=== PATIENT | female | born 1985 | race American Indian/Alaskan Native ===

== ENCOUNTER 2016-05-06 16:14 | Emergency (ER) | payer MEDICAID ==
[2016-05-06 16:23] VITALS: BMI 20.2
[2016-05-06 16:27] VITALS: O2SAT 98
--- NOTE | 2016-05-06 16:41 | ED PDOC ---
Arrival/HPI - General Chief Complaint: Lower Extremity Problem/Injury Time Seen by Provider: 05/06/16 16:41 Historian: Patient - History of Present Illness Narrative History of Present Illness (Text): 05/06/16 16:41 This 31 yo female with pmh chronic right knee pain, presents to this ED c/o exacerbation right knee x 1 week. Patient denies trauma, weakness, paresthesias , or rash. Time/Duration: Prior to Arrival Quality: Aching Context: Home Past Medical History - Provider Review Nursing Documentation Reviewed: Yes - Past History Past History: No Previous - Infectious Disease Hx of Infectious Diseases: None - Tetanus Immunization Tetanus Immunization: Unknown - Reproductive Menopause: No - Past Medical History Past Medical History: No Previous - Cardiac Hx Cardiac Disorders: No - Pulmonary Hx Respiratory Disorders: Yes Hx Bronchitis: Yes - Neurological Hx Neurological Disorder: No - HEENT Hx HEENT Disorder: No - Renal Hx Renal Disorder: No - Endocrine/Metabolic Hx Endocrine Disorders: No - Hematological/Oncological Hx Blood Disorders: No - Integumentary Hx Dermatological Disorder: No - Musculoskeletal/Rheumatological Hx Musculoskeletal Disorders: No - Gastrointestinal Hx Gastrointestinal Disorders: Yes Hx Gastritis: Yes - Genitourinary/Gynecological Hx Genitourinary Disorders: No - Psychiatric Hx Psychophysiologic Disorder: No Hx Substance Use: Yes - Past Surgical History Past Surgical History: No Previous - Anesthesia Hx Anesthesia: No Hx Anesthesia Reactions: No Hx Malignant Hyperthermia: No - Suicidal Assessment Feels Threatened In Home Enviroment: No Family/Social History - Physician Review Nursing Documentation Reviewed: Yes Family/Social History: No Known Family HX Smoking Status: Light Smoker < 10 Cigarettes Daily Hx Alcohol Use: Yes Hx Substance Use: Yes Substance used: "weed" Hx Substance Use Treatment: No Allergies/Home Meds Allergies/Adverse Reactions: Allergies shellfish derived Allergy (Verified 02/26/16 14:07) RASH Review of Systems - Review of Systems Constitutional: Normal. absent: Fatigue, Weight Change, Fevers Eyes: Normal ENT: Normal Respiratory: Normal. absent: SOB, Cough Cardiovascular: Normal. absent: Chest Pain Gastrointestinal: Normal. absent: Abdominal Pain, Diarrhea, Nausea, Vomiting Genitourinary Female: Normal. absent: Dysuria, Frequency, Hematuria Musculoskeletal: Normal Skin: Other ((+) right knee joint pain and swelling). absent: Rash, Pruritis, Laceration, Ulcer, Cellulitis Neurological: Normal Endocrine: Normal Hemo/Lymphatic: Normal Psychiatric: Normal Physical Exam Vital Signs Temp Pulse Resp BP Pulse Ox 05/06/16 17:53 98 F 60 18 116/70 98 05/06/16 16:23 98.1 F 69 16 115/73 98 Temperature: Afebrile Blood Pressure: Normal Pulse: Regular Respiratory Rate: Normal Appearance: Positive for: Well-Appearing, Non-Toxic, Comfortable Pain Distress: None Mental Status: Positive for: Alert and Oriented X 3 - Systems Exam Head: Present: Atraumatic, Normocephalic Pupils: Present: PERRL Extroacular Muscles: Present: EOMI Conjunctiva: Present: Normal Mouth: Present: Moist Mucous Membranes Neck: Present: Normal Range of Motion Respiratory/Chest: Present: Clear to Auscultation, Good Air Exchange. No: Respiratory Distress, Accessory Muscle Use Cardiovascular: Present: Regular Rate and Rhythm, Normal S1, S2. No: Murmurs Abdomen: Present: Normal Bowel Sounds. No: Tenderness, Distention, Peritoneal Signs Back: Present: Normal Inspection Upper Extremity: Present: Normal Inspection. No: Cyanosis, Edema Lower Extremity: Present: Normal Inspection, NORMAL PULSES, Normal ROM, Neurovascularly Intact, Capillary Refill < 2 s. No: Edema, CALF TENDERNESS, Shima's Sign, Tenderness, Swelling, Erythema, Deformity, Temperature Abnormalties Neurological: Present: GCS=15, CN II-XII Intact, Speech Normal Skin: Present: Warm, Dry, Normal Color. No: Rashes Psychiatric: Present: Alert, Oriented x 3 Medical Decision Making ED Course and Treatment: 05/06/16 17:08 Patient was observed to have a normal gait when she walked to the bathroom without discomfort or deficits. Re-evaluation Time: 17:48 Reassessment Condition: Re-examined, Improved - RAD Interpretation Narrative RAD Interpretations (Text): 05/06/16 18:02 Knee x-rays: no Fx or sublux. Mild DJD Radiology Orders: 05/06/16 16:41 KNEE W PATELLA RIGHT 3 VIEW [RAD] Stat - Medication Orders Current Medication Orders: Discontinued Medications Ketorolac Tromethamine (Toradol) 30 mg IM STAT STA Stop: 05/06/16 16:42 Last Admin: 05/06/16 16:59 Dose: 30 MG IM Administration Charges Document 05/06/16 16:59 [facility]16 [id number] Injection Site MAR Injection Site Right Arm Charges for Administration # of IM Administrations 1 Disposition/Present on Arrival - Present on Arrival Any Indicators Present on Arrival: No History of DVT/PE: No History of Uncontrolled Diabetes: No Urinary Catheter: No History of Decub. Ulcer: No History Surgical Site Infection Following: None - Disposition Have Diagnosis and Disposition been Completed?: Yes Diagnosis: Knee pain, chronic Disposition: HOME/ ROUTINE Disposition Time: 17:53 Patient Plan: Discharge Condition: GOOD Discharge Instructions (ExitCare): Knee Pain (ED) Additional Instructions: Call private doctor for follow up visit in 1-2 days. Take medication as instructed. Remove zack bandage at bedtime. Return to emergency if symptoms. Prescriptions: Lidocaine 5% 1 appl TP BID PRN #1 tube PRN Reason: Pain, Moderate (4-7) Naproxen 500 mg PO BID PRN #20 tab PRN Reason: Pain, Severe (8-10) Referrals: Rowena Royal MD [Family Provider] - Follow up with primary [facility] [Outside] - Follow up with primary
--- NOTE | 2016-05-06 18:22 | RAD ---
PROCEDURE: Right Knee Radiographs. HISTORY: pain COMPARISON: 02/18/2016 FINDINGS: BONES: Normal. No fracture. JOINTS: Normal. No osteoarthritis. JOINT EFFUSION: There is a small suprapatellar joint effusion. OTHER FINDINGS: None. IMPRESSION: No acute fracture or dislocation. Small suprapatellar joint effusion.
[2016-05-06 18:24] VITALS: BP 116/70; PULSE 60; RESP 18; TEMP 98
== END 2016-05-06 17:53 | disposition home or self-care (01) ==
LOC: ED 16:14
DX: M25.561 Pain in right knee (principal); G89.29 Other chronic pain
CPT/HCPCS: 73562; 96372; 99283; J1885

== ENCOUNTER 2016-05-25 01:29 | Emergency (ER) | payer MEDICAID ==
[2016-05-25 01:54] VITALS: BP 106/53; PULSE 81; RESP 18; TEMP 97.5; O2SAT 100
[2016-05-25 01:55] VITALS: BMI 19.3
--- NOTE | 2016-05-25 02:52 | ED PDOC ---
Arrival/HPI - General Chief Complaint: Allergic Reaction Time Seen by Provider: 05/25/16 01:40 Historian: Patient - History of Present Illness Narrative History of Present Illness (Text): 05/25/16 02:46 Burt Marquis is a 31 year old female who presents to the emergency department complaining of left wrist itchiness, and dryness of skin associated with peeling. Also reports of mild pain to the area. States she applied Aveeno cream for minimal relief. Patient also complains of watery eyes. Denies any fever, chills, chest pain, shortness of breath, nausea, vomiting, urinary symptoms or any other complaints at this time. Time/Duration: > week Symptom Onset: Sudden Symptom Course: Unchanged Severity Level: Mild Activities at Onset: Light Past Medical History - Provider Review Nursing Documentation Reviewed: Yes - Past History Past History: No Previous - Infectious Disease Hx of Infectious Diseases: None - Tetanus Immunization Tetanus Immunization: Unknown - Past Medical History Past Medical History: No Previous - Cardiac Hx Cardiac Disorders: No - Pulmonary Hx Respiratory Disorders: Yes Hx Bronchitis: Yes - Neurological Hx Neurological Disorder: No - HEENT Hx HEENT Disorder: No - Renal Hx Renal Disorder: No - Endocrine/Metabolic Hx Endocrine Disorders: No - Hematological/Oncological Hx Blood Disorders: No - Integumentary Hx Dermatological Disorder: No - Musculoskeletal/Rheumatological Hx Musculoskeletal Disorders: No - Gastrointestinal Hx Gastrointestinal Disorders: Yes Hx Gastritis: Yes Hx Gastroesophageal Reflux: Yes - Genitourinary/Gynecological Hx Genitourinary Disorders: No - Psychiatric Hx Psychophysiologic Disorder: No Hx Substance Use: No - Past Surgical History Past Surgical History: No Previous - Anesthesia Hx Anesthesia: No Hx Anesthesia Reactions: No Hx Malignant Hyperthermia: No - Suicidal Assessment Feels Threatened In Home Enviroment: No Family/Social History - Physician Review Nursing Documentation Reviewed: Yes Family/Social History: No Known Family HX Smoking Status: Light Smoker < 10 Cigarettes Daily Hx Alcohol Use: Yes Frequency of alcohol use: Socially Hx Substance Use: No Substance used: "weed" Hx Substance Use Treatment: No Allergies/Home Meds Allergies/Adverse Reactions: Allergies shellfish derived Allergy (Verified 05/27/16 10:19) RASH Review of Systems - Physician Review All systems were reviewed & negative as marked: Yes - Review of Systems Constitutional: Normal. absent: Fatigue Skin: Other (peeling skin on left wrist with itchiness ). absent: Skin Lesions Physical Exam Vital Signs Reviewed: Yes Vital Signs Temp Pulse Resp BP Pulse Ox 05/25/16 01:53 97.5 F L 81 18 106/53 L 100 Temperature: Afebrile Blood Pressure: Normal Pulse: Regular Respiratory Rate: Normal Appearance: Positive for: Well-Appearing, Non-Toxic, Comfortable Pain Distress: None Mental Status: Positive for: Alert and Oriented X 3 - Systems Exam Head: Present: Atraumatic, Normocephalic Pupils: Present: PERRL Conjunctiva: Present: Normal Respiratory/Chest: Present: Clear to Auscultation, Good Air Exchange. No: Respiratory Distress, Accessory Muscle Use Cardiovascular: Present: Regular Rate and Rhythm, Normal S1, S2. No: Murmurs Abdomen: Present: Normal Bowel Sounds. No: Tenderness, Distention, Peritoneal Signs Upper Extremity: Present: Normal ROM, Neurovascularly Intact, Capillary Refill < 2s. No: Cyanosis, Edema, Tenderness, Swelling, Erythema, Deformity Lower Extremity: Present: Normal Inspection. No: Edema Neurological: Present: GCS=15, CN II-XII Intact, Speech Normal, Motor Func Grossly Intact, Normal Sensory Function Skin: Present: Warm, Dry, Normal Color. No: Rashes Psychiatric: Present: Alert, Oriented x 3, Normal Insight, Normal Concentration Medical Decision Making ED Course and Treatment: 05/25/16 02:58 Impression: A 31 year old female who presents to the emergency department complaining of left wrist skin irritation. Differential Diagnosis included but are not limited to: contact dermatitis Progress Notes: 05/25/16 03:00 Patient is stable for discharge. Will discharge patient home in [facility]. - Scribe Statement The provider has reviewed the documentation as recorded by the [place] Dee Provider Attestation: All medical record entries made by the [place] were at my direction and personally dictated by me. I have reviewed the chart and agree that the record accurately reflects my personal performance of the history, physical exam, medical decision making, and the department course for this patient. I have also personally directed, reviewed, and agree with the discharge instructions and disposition. Disposition/Present on Arrival - Present on Arrival Any Indicators Present on Arrival: No History of DVT/PE: No History of Uncontrolled Diabetes: No Urinary Catheter: No History of Decub. Ulcer: No History Surgical Site Infection Following: None - Disposition Have Diagnosis and Disposition been Completed?: Yes Diagnosis: Seasonal allergies, Contact dermatitis Disposition: HOME/ ROUTINE Disposition Time: 03:00 Condition: GOOD Discharge Instructions (ExitCare): Contact Dermatitis (ED), Allergic Rhinitis ( ED)
== END 2016-05-25 03:59 | disposition home or self-care (01) ==
LOC: ED 01:29
DX: L25.9 Unspecified contact dermatitis, unspecified cause (principal); J30.2 Other seasonal allergic rhinitis

== ENCOUNTER 2016-05-27 10:03 | Emergency (ER) | payer MEDICAID ==
[2016-05-27 10:19] VITALS: BMI 19.6
[2016-05-27 10:21] VITALS: TEMP 98.1; O2SAT 98
[2016-05-27] MEDS ORDERED: Sodium Chloride 0.9% 1,000 ML IV STA (10:35)
--- NOTE | 2016-05-27 10:57 | ED PDOC ---
Arrival/HPI - General Chief Complaint: Abdominal Pain Time Seen by Provider: 05/27/16 10:21 Historian: Patient - History of Present Illness Narrative History of Present Illness (Text): 05/27/16 10:31 A 31 year old female presents to the emergency department complaining of a constant burning sensation in epigastric region for the past 4 days. Patient states she has experienced this symptom before and diagnosed with acid reflux. Patient states her symptoms worsen when drinking alcohol. She admits to drinking alcohol and smoking more frequently in the past few days, she states her last alcoholic drink was last night. Patient denies any fever, chills, nausea, vomiting, diarrhea, urinary symptoms, rectal bleeding, vaginal bleeding , chest pain, shortness of breath, headache or any other complaints. No hematemesis. No bloody or dark urine or stool. Pain does not radiate to lower abdomen. Pain does not radiate to back. No pleuritic pain noted or reported. Time/Duration: Other ( 4days) Symptom Course: Unchanged Quality: Other Context: Other Past Medical History - Provider Review Nursing Documentation Reviewed: Yes - Past History Past History: No Previous - Infectious Disease Hx of Infectious Diseases: None - Tetanus Immunization Tetanus Immunization: Unknown - Past Medical History Past Medical History: No Previous - Cardiac Hx Cardiac Disorders: No - Pulmonary Hx Respiratory Disorders: Yes Hx Bronchitis: Yes - Neurological Hx Neurological Disorder: No - HEENT Hx HEENT Disorder: No - Renal Hx Renal Disorder: No - Endocrine/Metabolic Hx Endocrine Disorders: No - Hematological/Oncological Hx Blood Disorders: No - Integumentary Hx Dermatological Disorder: No - Musculoskeletal/Rheumatological Hx Musculoskeletal Disorders: No - Gastrointestinal Hx Gastrointestinal Disorders: Yes Hx Gastritis: Yes Hx Gastroesophageal Reflux: Yes - Genitourinary/Gynecological Hx Genitourinary Disorders: No - Psychiatric Hx Psychophysiologic Disorder: No Hx Substance Use: No - Past Surgical History Past Surgical History: No Previous - Anesthesia Hx Anesthesia: No Hx Anesthesia Reactions: No Hx Malignant Hyperthermia: No - Suicidal Assessment Feels Threatened In Home Enviroment: No Family/Social History - Physician Review Nursing Documentation Reviewed: Yes Family/Social History: No Known Family HX Smoking Status: Light Smoker < 10 Cigarettes Daily Hx Alcohol Use: Yes Frequency of alcohol use: Daily Hx Substance Use: No Substance used: "weed" Hx Substance Use Treatment: No Allergies/Home Meds Allergies/Adverse Reactions: Allergies shellfish derived Allergy (Verified 05/27/16 10:19) RASH Review of Systems - Review of Systems Constitutional: absent: Fatigue, Fevers, Night Sweats Eyes: absent: Vision Changes ENT: absent: Hearing Changes, Sore Throat Respiratory: absent: SOB, Wheezing Cardiovascular: absent: Chest Pain, CHING Gastrointestinal: Abdominal Pain (Epigastric burining). absent: Constipation, Diarrhea, Nausea, Vomiting, Hematochezia, Hematemesis, Other (rectal bleeding) Genitourinary Female: absent: Dysuria, Frequency, Hematuria, Urine Output Changes, Vaginal Bleeding Musculoskeletal: absent: Back Pain, Neck Pain Skin: absent: Rash Neurological: absent: Headache, Focal Weakness, Gait Changes, Facial Droop, Disequilibrium Endocrine: absent: Polyuria, Polydipsia Hemo/Lymphatic: absent: Easy Bleeding Psychiatric: absent: Depression Physical Exam - Physical Exam Narrative Physical Exam (Text): Head: Atraumatic. Normocephalic. Eyes: PERRL. EOMI. Conjunctivae are not pale. ENT: Mucous membranes are moist and intact. Oropharynx is clear and symmetric. Neck: Supple. Full ROM. No JVD. No lymphadenopathy. Cardiovascular: Regular rate. Regular rhythm. No murmurs, rubs, or gallops. Distal pulses are 2+ and symmetric. Pulmonary/Chest: No evidence of respiratory distress. Clear to auscultation bilaterally. No wheezing, rales or rhonchi. No chest wall tenderness. No crepitus. Abdominal: Soft and non-distended. Mild epigastric pain. No rebound, guarding , or rigidity. No organomegaly. Good bowel sounds. No lower abdominal pain. No pulsatile masses. Back: No CVA tenderness. No midline tenderness. No stepoffs or deformity. Extremities: No edema. No cyanosis. No clubbing. Full range of motion in all extremities. No calf tenderness. Skin: Skin is warm and dry. No petechiae. No purpura. Neurological: Alert, awake, and oriented to person, place, time, and situation. Normal speech. Normal gait. No meningeal signs. Motor and sensory intact. No facial droop. Psychiatric: Good eye contact. Normal interaction, affect, and behavior. Denies suicidal or homicidal ideation. Vital Signs Reviewed: Yes Vital Signs Temp Pulse Resp BP Pulse Ox 05/27/16 13:19 65 18 121/73 98 05/27/16 11:20 68 18 123/75 98 05/27/16 10:19 98.1 F 70 15 125/85 98 Temperature: Afebrile Blood Pressure: Normal Pulse: Regular Respiratory Rate: Normal Appearance: Positive for: Well-Appearing, Non-Toxic, Uncomfortable Pain Distress: Mild Mental Status: Positive for: Alert and Oriented X 3 Medical Decision Making ED Course and Treatment: 05/27/16 10:31 Impression: A 31 year old female with a burning sensation in epigastric region. Tenderness on exam. Differential Diagnosis included but are not limited to: Gastritis vs. Reflux vs. Alcohol abuse Plan: -- Labs -- Urinalysis -- Pepcid and IV fluids -- Reassess and disposition Progress Notes: Patient appears comfortable. Denies chest pain or sob. She states she drinks daily. She was offered counseling here in ED although she states she does not want counseling. She is not intoxicated. Not tremulous or tachycardic. RISKS OF ALCOHOL USE DAILY AND SMOKING DISCUSSED WITH PATIENT IN LAYMEN'S TERMS. She described symptoms as similar as past episodes and that she "ran out of my omeprazole". No vomiting or hematemesis. Tolerating po. After iv fluids and pepcid, patient reports improved but persistent pain. Patient subsequently ordered ultrasound, ultrasound reviewed, no gallstones noted. Relief with Mylanta. CV stable. Re-exam, no peritoneal signs or melena or bleeding noted. RISKS OF THIS REVIEWED WITH PATIENT. She will be discharged with omeprazole, advised follow-up with her PMD. 05/27/16 15:55 - Lab Interpretations Lab Results: 05/27/16 11:30 05/27/16 11:30 Lab Results 05/27/16 11:30: WBC 5.6, RBC 3.87, Hgb 13.0, Hct 37.8, MCV 97.7, MCH 33.6, MCHC 34.4, RDW 13.4, Plt Count 212, MPV 10.5, Gran % 62.9, Lymph % (Auto) 22.8, [place] % (Auto) 12.4 H, Eos % (Auto) 1.4 L, Baso % (Auto) 0.5, Gran # 3.50, Lymph # 1.3 , [place] # 0.7 H, Eos # 0.1, Baso # 0.03, Sodium 142, Potassium 3.7, Chloride 105 , Carbon Dioxide 29, Anion Gap 12, BUN 12, Creatinine 0.7, Est GFR ( Amer ) > 60, Est GFR (Non-Af Amer) > 60, Random Glucose 70, Calcium 8.8, Total Bilirubin 0.5, AST 37, ALT 36, Alkaline Phosphatase 56, Total Protein 7.4, Albumin 4.0, Globulin 3.4, Albumin/Globulin Ratio 1.2, Amylase 90, Lipase 78, Urine Color Yellow, Urine Appearance Clear, Urine pH 7.0, Ur Specific [place] 1.020, Urine Protein Negative, Urine Glucose (UA) Negative, Urine Ketones Negative, Urine Blood Negative, Urine Nitrate Negative, Urine Bilirubin Negative , Urine Urobilinogen 1.0 H, Ur Leukocyte Esterase Negative, Urine HCG, Qual Negative, Alcohol, Quantitative 20 H I have reviewed the lab results: Yes - RAD Interpretation Radiology Orders: 05/27/16 12:25 ABDOMEN COMPLETE [US] Stat 05/27/16 13:44 CHEST PORTABLE [RAD] Stat Gem Setter: Radiologist - Medication Orders Current Medication Orders: Discontinued Medications Al Hydrox/Mg Hydrox/Simethicone (Maalox Plus 30 Ml) 30 ml PO STAT STA Stop: 05/27/16 14:22 Last Admin: 05/27/16 14:45 Dose: 30 ML Famotidine (Pepcid) 20 mg IVP STAT STA Stop: 05/27/16 10:36 Last Admin: 05/27/16 11:29 Dose: 20 MG IVP Administration Document 05/27/16 11:29 [facility] (Rec: 05/27/16 11:29 [id number]) Charges for Administration # of IVP Administrations 1 Sodium Chloride (Sodium Chloride 0.9%) 1,000 mls @ 1,000 mls/hr IV .Q1H STA Stop: 05/27/16 11:34 Last Admin: 05/27/16 11:29 Dose: 1,000 MLS/HR eMAR Start Stop Document 05/27/16 11:29 [facility] (Rec: 05/27/16 11:30 [id number]) Intravenous Solution Start Date 05/27/16 Start Time 11:30 End Date 05/27/16 Ondansetron HCl (Zofran Inj) 4 mg IVP ONCE ONE Stop: 05/27/16 12:24 Last Admin: 05/27/16 12:33 Dose: 4 MG IVP Administration Document 05/27/16 12:33 [facility] (Rec: 05/27/16 12:36 [id number]) Charges for Administration # of IVP Administrations 1 Tramadol HCl (Ultram) 50 mg PO STAT STA Stop: 05/27/16 12:22 Last Admin: 05/27/16 12:36 Dose: 50 MG - Scribe Statement The provider has reviewed the documentation as recorded by the [place] Thomason Provider Scribe Attestation: All medical record entries made by the Scribe were at my direction and personally dictated by me. I have reviewed the chart and agree that the record accurately reflects my personal performance of the history, physical exam, medical decision making, and the department course for this patient. I have also personally directed, reviewed, and agree with the discharge instructions and disposition. Disposition/Present on Arrival - Present on Arrival Any Indicators Present on Arrival: No History of DVT/PE: No History of Uncontrolled Diabetes: No Urinary Catheter: No History of Decub. Ulcer: No History Surgical Site Infection Following: None - Disposition Have Diagnosis and Disposition been Completed?: Yes Diagnosis: Gastritis Disposition: HOME/ ROUTINE Disposition Time: 14:00 Patient Plan: Discharge Patient Problems: Current Active Problems Problem Status Diagnosed Gastritis Acute Condition: GOOD Discharge Instructions (ExitCare): Gastritis (ED), How to Stop Smoking (ED) Additional Instructions: There is RISK of daily alcohol use or excessive alcohol use as I have discussed with you. Risks of smoking have been discussed with you. Drink only in moderation or you risk ulcer, stomach and liver disease, bleeding , cancer, amongst other diseases. Take medication as directed. Follow-up with your primary care doctor in 1-2 days. Prescriptions: Omeprazole 20 mg PO DAILY #14 capsule. Referrals: [facility] [Outside] - Follow up with primary [facility] [Outside] - Follow up with primary
[2016-05-27 11:20] VITALS: RESP 18
[2016-05-27 11:42] LABS: ADD MANUAL DIFF? NO
[2016-05-27 11:46] LABS: URINE BILIRUBIN NEGATIVE (NEGATIVE); URINE BLOOD NEGATIVE (NEGATIVE); URINE GLUCOSE (UA) NEGATIVE (NEGATIVE); URINE KETONE NEGATIVE (NEGATIVE); URINE LEUKOCYTE ESTERASE NEGATIVE Leu/uL (NEGATIVE); URINE PROTEIN NEGATIVE mg/dL (<30 mg/dL)
[2016-05-27 11:47] LABS: BASO # 0.03 K/mm3 (0.0-2.0); BASO % 0.5 % (0.0-3.0); EOS # 0.1 (0.0-0.7); EOS % 1.4 % (1.5-5.0); GRAN % 62.9 % (50.0-68.0); HEMATOCRIT 37.8 % (36.0-48.0); LYMPH # 1.3 (1.2-3.4); LYMPH % 22.8 % (22.0-35.0); MEAN CELL VOLUME 97.7 fL (80.0-105.0); MEAN CORPUSCULAR HEMOGLOBIN 33.6 pg (25.0-35.0); MEAN CORPUSCULAR HGB CONC 34.4 g/dl (31.0-37.0); MEAN PLATELET VOLUME 10.5 fl (7.0-11.0); MONO # 0.7 (0.1-0.6); MONO % 12.4 % (1.0-6.0); PLATELET COUNT 212 10^3/uL (120.0-450.0); RED CELL DISTRIBUTION WIDTH 13.4 % (11.5-14.5); WHITE BLOOD COUNT 5.6 10^3/ul (4.5-11.0)
[2016-05-27 11:48] LABS: URINE APPEARANCE CLEAR (CLEAR); URINE COLOR YELLOW (YELLOW)
[2016-05-27 11:55] LABS: ALB/GLOB RATIO 1.2 (1.1-1.8); ALKALINE PHOSPHATASE 56 U/L (38-133); ALT/SGPT 36 U/L (7-56); AMYLASE 90 U/L (35-125); AST/SGOT 37 U/L (15-39); BILIRUBIN,TOTAL 0.5 mg/dL (0.2-1.3); BLOOD UREA NITROGEN 12 mg/dL (7-21); CALCIUM 8.8 mg/dL (8.4-10.5); CARBON DIOXIDE 29 mmol/L (21-33); CHLORIDE 105 mmol/L (98-107); GFR AFRICAN-AMERICAN > 60; GLUCOSE,RANDOM 70 mg/dL (70-110); LIPASE 78 U/L (23-300); POTASSIUM 3.7 mmol/L (3.6-5.0); SODIUM 142 mmol/L (132-148); TOTAL PROTEIN 7.4 g/dL (5.8-8.3)
[2016-05-27 13:19] VITALS: BP 121/73; PULSE 65
--- NOTE | 2016-05-27 13:23 | US ---
HISTORY: Upper abdominal pain COMPARISON: None. TECHNIQUE: Grayscale imaging was performed. FINDINGS: LIVER: Measures 16.8 cm. Normal echogenicity of the liver parenchyma. No mass. No intrahepatic bile duct dilatation. GALLBLADDER: Unremarkable. No gallstones. COMMON BILE DUCT: Measures 5.0 mm. No stones. No dilatation. PANCREAS: Unremarkable as visualized. No mass. No ductal dilatation. RIGHT KIDNEY: Measures 11.3cm. Normal echogenicity. No calculus, mass, or hydronephrosis. LEFT KIDNEY: Measures 11.8cm. Normal echogenicity. No calculus, mass, or hydronephrosis. SPLEEN: Normal in size and contour. No mass. AORTA: No aneurysmal dilatation. IVC: Unremarkable. OTHER FINDINGS: None. IMPRESSION: Normal examination.
[2016-05-27] MEDS ORDERED: Alum-Mag Hydrox-Simethicone Susp (30 mL) PO STA (14:21)
--- NOTE | 2016-05-27 14:49 | RAD ---
HISTORY: upper abdominal pain COMPARISON: No prior. FINDINGS: LUNGS: No active pulmonary disease. PLEURA: No significant pleural effusion identified, no pneumothorax apparent. CARDIOVASCULAR: Normal. OSSEOUS STRUCTURES: No significant abnormalities. VISUALIZED UPPER ABDOMEN: Normal. OTHER FINDINGS: None. IMPRESSION: No active disease.
== END 2016-05-27 15:30 | disposition home or self-care (01) ==
LOC: ED 10:03
DX: K29.70 Gastritis, unspecified, without bleeding (principal)
CPT/HCPCS: 71010; 76700; 80053; 80320; 81003; 82150; 82948; 83690; 84703; 85025; 96374; 96375; 99284; J2405; J7040

== ENCOUNTER 2016-07-02 15:53 | Emergency (ER) | payer MEDICAID ==
[2016-07-02 15:53] VITALS: BMI 19.6
== END 2016-07-02 16:11 | disposition left against medical advice (07) ==
LOC: ED 15:53
DX: Z02.89 Encounter for other administrative examinations (principal); R10.9 Unspecified abdominal pain

== ENCOUNTER 2016-09-05 02:33 | Emergency (ER) | payer MEDICAID ==
[2016-09-05 02:34] VITALS: BMI 19.6
[2016-09-05 02:56] VITALS: RESP 18; TEMP 97.9; O2SAT 99
--- NOTE | 2016-09-05 03:08 | ED PDOC ---
Arrival/HPI - General Chief Complaint: Lower Extremity Problem/Injury Time Seen by Provider: 09/05/16 02:51 Historian: Patient - History of Present Illness Narrative History of Present Illness (Text): 09/05/16 02:55 A 31 year old female whose past medical history includes arthritis, presents to the emergency department with right knee pain after a mechanical fall tonight. Patient states she fell while going down the stairs tonight and injured her right knee. The patient denies symptoms of weakness/numbness/tingling in the extremity, head trauma, headache, nausea, vomiting, or any other complaint. Time/Duration: Prior to Arrival Symptom Course: Unchanged Activities at Onset: Light Context: Walking, Tripped Past Medical History - Provider Review Nursing Documentation Reviewed: Yes - Past History Past History: No Previous - Infectious Disease Hx of Infectious Diseases: None - Tetanus Immunization Tetanus Immunization: Unknown - Past Medical History Past Medical History: No Previous - Cardiac Hx Cardiac Disorders: No - Pulmonary Hx Respiratory Disorders: Yes Hx Bronchitis: Yes - Neurological Hx Neurological Disorder: No - HEENT Hx HEENT Disorder: No - Renal Hx Renal Disorder: No - Endocrine/Metabolic Hx Endocrine Disorders: No - Hematological/Oncological Hx Blood Disorders: No - Integumentary Hx Dermatological Disorder: No - Musculoskeletal/Rheumatological Hx Musculoskeletal Disorders: No - Gastrointestinal Hx Gastrointestinal Disorders: Yes Hx Gastritis: Yes Hx Gastroesophageal Reflux: Yes - Genitourinary/Gynecological Hx Genitourinary Disorders: No - Psychiatric Hx Psychophysiologic Disorder: No Hx Substance Use: No - Past Surgical History Past Surgical History: No Previous - Anesthesia Hx Anesthesia: No Hx Anesthesia Reactions: No Hx Malignant Hyperthermia: No - Suicidal Assessment Feels Threatened In Home Enviroment: No Family/Social History - Physician Review Nursing Documentation Reviewed: Yes Family/Social History: No Known Family HX Smoking Status: Light Smoker < 10 Cigarettes Daily Hx Alcohol Use: Yes Hx Substance Use: No Substance used: "weed" Hx Substance Use Treatment: No Allergies/Home Meds Allergies/Adverse Reactions: Allergies shellfish derived Allergy (Verified 05/27/16 10:19) RASH Review of Systems - Physician Review All systems were reviewed & negative as marked: Yes - Review of Systems Constitutional: absent: Fevers, Night Sweats Gastrointestinal: absent: Diarrhea, Nausea, Vomiting Musculoskeletal: Arthralgias (+right knee pain) Neurological: absent: Headache Physical Exam Vital Signs Reviewed: Yes Vital Signs Temp Pulse Resp BP Pulse Ox 09/05/16 02:51 97.9 F 74 18 118/74 99 Temperature: Afebrile Blood Pressure: Normal Pulse: Regular Respiratory Rate: Normal Appearance: Positive for: Well-Appearing Pain Distress: None Mental Status: Positive for: Alert and Oriented X 3 - Systems Exam Head: Present: Atraumatic, Normocephalic Pupils: Present: PERRL Extroacular Muscles: Present: EOMI Conjunctiva: Present: Normal Mouth: Present: Moist Mucous Membranes Neck: Present: Normal Range of Motion Respiratory/Chest: Present: Clear to Auscultation, Good Air Exchange. No: Respiratory Distress, Accessory Muscle Use Cardiovascular: Present: Regular Rate and Rhythm, Normal S1, S2. No: Murmurs Abdomen: Present: Normal Bowel Sounds. No: Tenderness, Distention, Peritoneal Signs Back: Present: Normal Inspection Upper Extremity: Present: Normal Inspection. No: Cyanosis, Edema Lower Extremity: Present: Neurovascularly Intact, Capillary Refill < 2 s, Other (Pain with flexion and/or extension of right knee pain; no joint laxity; neruovasucularly intact.) Neurological: Present: GCS=15, CN II-XII Intact, Speech Normal Skin: Present: Warm, Dry, Normal Color. No: Rashes Psychiatric: Present: Alert, Oriented x 3, Normal Insight, Normal Concentration Medical Decision Making ED Course and Treatment: 09/05/16 03:12 Impression: A 31 year old female with right knee pain after a mechanical fall. Plan: -- Right Knee X-Ray -- Toradol -- Reassess and disposition Prior Visits: Notes and results from previous visits were reviewed. Patient was last seen in the emergency department on 05/27/2016for abdominal pain. Progress Notes: 09/05/16 04:55 Reviewed radiology, XR Right Knee shows: Bones/joints: Unremarkable. No acute fracture. No dislocation. Soft tissues: Unremarkable. IMPRESSION: Negative right knee without significant change from 05/06/2016. 09/05/16 05:00 On reevaluation the patient feels better and is in no acute distress. I have discussed the results and plan with the patient, who expresses understanding. Patient given the opportunity to ask question, all questions were answered and there is agreement with the plan to discharge the patient home. Patient is stable for discharge. Patient was instructed to follow up with physician/clinic in 1-2 days or return if symptoms persist/worsen or new concerning symptoms arise. - RAD Interpretation Radiology Orders: 09/05/16 02:59 KNEE W PATELLA RIGHT 3 VIEW [RAD] Stat - Medication Orders Current Medication Orders: Discontinued Medications Ketorolac Tromethamine (Toradol) 60 mg IM ONCE ONE Stop: 09/05/16 02:59 Last Admin: 09/05/16 03:07 Dose: 60 mg Ketorolac Tromethamine (Toradol) Confirm Administered Dose 60 mg .ROUTE .STK- MED ONE Stop: 09/05/16 03:05 - Scribe Statement The provider has reviewed the documentation as recorded by the Scribe Noemi Weiss Provider Scribe Attestation: All medical record entries made by the Scribe were at my direction and personally dictated by me. I have reviewed the chart and agree that the record accurately reflects my personal performance of the history, physical exam, medical decision making, and the department course for this patient. I have also personally directed, reviewed, and agree with the discharge instructions and disposition. Disposition/Present on Arrival - Present on Arrival Any Indicators Present on Arrival: No History of DVT/PE: No History of Uncontrolled Diabetes: No Urinary Catheter: No History of Decub. Ulcer: No History Surgical Site Infection Following: None - Disposition Have Diagnosis and Disposition been Completed?: Yes Diagnosis: Knee sprain Disposition: HOME/ ROUTINE Disposition Time: 04:57 Patient Plan: Discharge Patient Problems: Current Active Problems Problem Status Onset Knee sprain Acute Condition: STABLE Discharge Instructions (ExitCare): Knee Sprain (ED) Additional Instructions: Rest affected knee/use knee immobilizer/crutches/medication as directed/follow up with the orthopedist ths week Prescriptions: traMADol/Acetaminophen [Ultracet 325 MG-37.5 MG] 1 tab PO Q6 PRN #12 tab PRN Reason: Pain Referrals: [facility] [Outside] - Follow up with primary Forms: [employer] (Norwegian)
[2016-09-05 05:46] VITALS: BP 124/72; PULSE 80
--- NOTE | 2016-09-05 14:00 | RAD ---
PROCEDURE: Right Knee Radiographs. HISTORY: injury COMPARISON: None. FINDINGS: BONES: Normal. No fracture. JOINTS: No dislocation. JOINT EFFUSION: None. OTHER FINDINGS: None. IMPRESSION: Normal radiographs of the right knee.
== END 2016-09-05 05:45 | disposition home or self-care (01) ==
LOC: ED 02:33
DX: S83.91XA Sprain of unspecified site of right knee, initial encounter (principal); W10.8XXA Fall (on) (from) other stairs and steps, initial encounter; Y93.9 Activity, unspecified; Y92.9 Unspecified place or not applicable
CPT/HCPCS: 73562; 96372; 99282; J1885

== ENCOUNTER 2016-11-24 00:27 | Emergency (ER) | payer MEDICAID ==
[2016-11-24 00:29] VITALS: BMI 19.6
== END 2016-11-24 00:48 | disposition left against medical advice (07) ==
LOC: ED 00:27
DX: Z02.89 Encounter for other administrative examinations (principal); M79.606 Pain in leg, unspecified

== ENCOUNTER 2017-02-05 20:22 | Emergency (ER) | payer MEDICAID ==
[2017-02-05 20:22] VITALS: BMI 19.6
[2017-02-05 20:31] VITALS: TEMP 98.3
[2017-02-05] MEDS ORDERED: Naproxen 550 mg Tab PO STA (20:51)
--- NOTE | 2017-02-05 21:36 | ED PDOC ---
Arrival/HPI - General Historian: Patient - History of Present Illness Time/Duration: 4-6 hours Symptom Onset: Sudden Quality: Other Severity Level: Mild Activities at Onset: Light Context: Slipped - General Chief Complaint: Trauma Time Seen by Provider: 02/05/17 20:50 - History of Present Illness Narrative History of Present Illness (Text): 02/05/17 21:10 A 31 year old female presents to the emergency department status post fall after falling outside in the snow earlier today. The patient states she fell and landed on her right hip and now she is complaining of right sided hip pain. The patient denies any further injuries, loc, head trauma, decreased ROM, numbness, or any other complaints at this time. PMLivan Regan (Thad HUERTA,Guillermina Vuong) Past Medical History - Provider Review Nursing Documentation Reviewed: Yes - Past History Past History: No Previous - Infectious Disease Hx of Infectious Diseases: None - Tetanus Immunization Tetanus Immunization: Unknown - Past Medical History Past Medical History: No Previous - Cardiac Hx Cardiac Disorders: No - Pulmonary Hx Respiratory Disorders: Yes Hx Bronchitis: Yes - Neurological Hx Neurological Disorder: No - HEENT Hx HEENT Disorder: No - Renal Hx Renal Disorder: No - Endocrine/Metabolic Hx Endocrine Disorders: No - Hematological/Oncological Hx Blood Disorders: No - Integumentary Hx Dermatological Disorder: No - Musculoskeletal/Rheumatological Hx Musculoskeletal Disorders: No - Gastrointestinal Hx Gastrointestinal Disorders: Yes Hx Gastritis: Yes Hx Gastroesophageal Reflux: Yes - Genitourinary/Gynecological Hx Genitourinary Disorders: No - Psychiatric Hx Psychophysiologic Disorder: No Hx Substance Use: No - Past Surgical History Past Surgical History: No Previous - Anesthesia Hx Anesthesia: No Hx Anesthesia Reactions: No Hx Malignant Hyperthermia: No - Suicidal Assessment Feels Threatened In Home Enviroment: No Family/Social History - Physician Review Nursing Documentation Reviewed: Yes Family/Social History: No Known Family HX Smoking Status: Light Smoker < 10 Cigarettes Daily Hx Alcohol Use: Yes Frequency of alcohol use: Socially Hx Substance Use: No Substance used: "weed" Hx Substance Use Treatment: No Allergies/Home Meds Allergies/Adverse Reactions: Allergies shellfish derived Allergy (Verified 02/05/17 20:27) RASH Home Medications: Home Meds Medication Instructions Recorded Confirmed Loratadine [Claritin] 10 mg PO DAILY 02/05/17 02/05/17 Review of Systems - Physician Review All systems were reviewed & negative as marked: Yes - Review of Systems Constitutional: absent: Fatigue, Weight Change, Fevers Respiratory: absent: SOB, Cough, Sputum Cardiovascular: absent: Chest Pain, Palpitations, Edema Gastrointestinal: absent: Abdominal Pain, Stool Changes, Appetite Changes Musculoskeletal: Other (right sided him pain; no decreasedROM, numbness, or further injuries). absent: Back Pain, Neck Pain Neurological: absent: Headache, Dizziness, Focal Weakness Physical Exam Vital Signs Reviewed: Yes Temperature: Afebrile Blood Pressure: Hypotensive Pulse: Tachycardic Respiratory Rate: Normal Appearance: Positive for: Well-Appearing, Non-Toxic, Comfortable Pain Distress: None Mental Status: Positive for: Alert and Oriented X 3 - Systems Exam Head: Present: Atraumatic, Normocephalic Pupils: Present: PERRL Extroacular Muscles: Present: EOMI Conjunctiva: Present: Normal Mouth: Present: Moist Mucous Membranes Neck: Present: Normal Range of Motion Respiratory/Chest: Present: Clear to Auscultation, Good Air Exchange. No: Respiratory Distress, Accessory Muscle Use Cardiovascular: Present: Regular Rate and Rhythm, Normal S1, S2. No: Murmurs Abdomen: Present: Normal Bowel Sounds. No: Tenderness, Distention, Peritoneal Signs Back: Present: Normal Inspection Upper Extremity: Present: Normal Inspection, Normal ROM, NORMAL PULSES, Neurovascularly Intact, Capillary Refill < 2s. No: Cyanosis, Edema, Temperature Abnormalties, Deformity Lower Extremity: Present: NORMAL PULSES, Normal ROM, Tenderness (mild rgiht sided hip tenderness; full ROM ), Neurovascularly Intact, Capillary Refill < 2 s. No: Swelling, Erythema, Deformity, Temperature Abnormalties Neurological: Present: GCS=15, CN II-XII Intact, Speech Normal Skin: Present: Warm, Dry, Normal Color. No: Rashes Psychiatric: Present: Alert, Oriented x 3, Normal Insight, Normal Concentration Vital Signs Temp Pulse Resp BP Pulse Ox 02/05/17 23:02 88 16 112/70 100 02/05/17 20:28 98.3 F 91 H 18 91/64 L 97 Medical Decision Making ED Course and Treatment: 02/05/17 21:36 Impression: A 31 year old female with right sided hip pain Plan: -- Naproxen -- Radiology: right hip & pelvis -- test -- Reassess and disposition [place] [facility] [place] / pelvis : no fracture and no dislocation, as read by PA. XR results d/w the patient, dx of hip contusion d/w the patient. Advised to take otc nsaids for pain. On re-evaluation, patient able to stand up and ambulate in the ER with a normal gait. Patient instructed to follow up with primary care physician in 1-2 days without fail. Advised to take medication as prescribed. Return to the emergency room at any time for any new or worsening symptoms. Patient states she fully agrees with and understands discharge instructions. States that she agrees with the plan and disposition. Verbalized and repeated discharge instructions and plan. I have given the patient opportunity to ask any additional questions. (Thad HUERTA,Guillermina Vuong) - RAD Interpretation Radiology Orders: 02/05/17 20:50 HIP MIN 2V W/ PELVIS RT [RAD] Stat - Medication Orders Current Medication Orders: Discontinued Medications Naproxen (Anaprox Ds) 550 mg PO ONCE STA Stop: 02/05/17 20:52 Last Admin: 02/05/17 21:47 Dose: 550 mg - PA / XEROX MACHINE OPERATOR / Resident Statement MD/DO has reviewed & agrees with the documentation as recorded. - Scribe Statement The provider has reviewed the documentation as recorded by the Scribe - Scribe Statement Kat Navarro Provider Scribe Attestation: All medical record entries made by the Scribe were at my direction and personally dictated by me. I have reviewed the chart and agree that the record accurately reflects my personal performance of the history, physical exam, medical decision making, and the department course for this patient. I have also personally directed, reviewed, and agree with the discharge instructions and disposition. (Thad HUERTA,Guillermina Vuong) Disposition/Present on Arrival - Present on Arrival Any Indicators Present on Arrival: No History of DVT/PE: No History of Uncontrolled Diabetes: No Urinary Catheter: No History of Decub. Ulcer: No History Surgical Site Infection Following: None - Disposition Have Diagnosis and Disposition been Completed?: Yes Disposition Time: 22:54 Patient Plan: Discharge - Disposition Diagnosis: Contusion of hip, right Disposition: HOME/ ROUTINE Condition: STABLE Discharge Instructions (ExitCare): Contusion in Adults (ED) Print Language: GUYANESE Additional Instructions: Thank you for letting us take care of you today. You were treated for R hip contusion. The emergency medical care you received today was directed at your acute symptoms. It may take several days for your symptoms to resolve. Return to the Emergency Department if your symptoms worsen, do not improve, or if you have any other problems. Please contact your doctor in 2 days for re-evaluation and follow up. Bring any paperwork you were given at discharge with you along with any medications you are taking to your follow up visit. Our treatment cannot replace ongoing medical care by a primary care provider (PCP) outside of the emergency department. Thank you for allowing the [facility] team to be part of your care today. If you had an X-Ray : A Radiologist will review the ED reading if any change in treatment is needed we will contact you. Referrals: Marilu Regan APN [Primary Care Provider] - Follow up with primary Forms: [employer] (Albanian), WORK NOTE
[2017-02-05 23:04] VITALS: BP 112/70; PULSE 88; RESP 16; O2SAT 100
--- NOTE | 2017-02-06 15:22 | RAD ---
PROCEDURE: Right hip dated 02/05/2017. HISTORY: Pain COMPARISON: Comparison made with pelvis and bilateral hip radiographs dated 02/18/2016. TECHNIQUE: AP view of the pelvis with AP and frogleg lateral views right hip performed. FINDINGS: No evidence of acute displaced fracture nor dislocation. Both femoral heads are appropriately located within the respective acetabula. No significant osteoarthritis. SI joints and pubic symphysis patent and intact. Incidental note made of in situ umbilical ring. IMPRESSION: No acute displaced fracture nor dislocation. No significant osteoarthritis. Consider followup MRI of the hip if further evaluation is required.
== END 2017-02-05 23:04 | disposition home or self-care (01) ==
LOC: ED 20:22
DX: S70.01XA Contusion of right hip, initial encounter (principal); W00.0XXA Fall on same level due to ice and snow, initial encounter; Y92.89 Other specified places as the place of occurrence of the external cause

== ENCOUNTER 2017-05-07 14:04 | Emergency (ER) | payer MEDICAID ==
[2017-05-07 14:05] VITALS: BMI 19.6
[2017-05-07 14:16] VITALS: TEMP 97.7; O2SAT 98
[2017-05-07 15:19] VITALS: BP 112/71; PULSE 86; RESP 18
--- NOTE | 2017-05-07 15:27 | ED PDOC ---
Arrival/HPI - General Chief Complaint: Female Genitourinary Time Seen by Provider: 05/07/17 15:21 Historian: Patient - History of Present Illness Narrative History of Present Illness (Text): 05/07/17 15:22 32-year-old female presents today requesting a test. Patient states that her period lasted only 2 days and she is concerned that she was . Patient states she was having abdominal cramping during the 2 days of her period and is still having occasional abdominal cramping. Patient states she just wanted to make sure that she is not . Patient states her period started on the and ended today. Patient says that is not normal she normally has regular periods lasting 7 days. Patient denies any pain at present time. Patient is requesting a test and a work note. Quality: Cramping Severity Level: 1 Past Medical History - Provider Review Nursing Documentation Reviewed: Yes - Travel History Have you recently traveled outside [place] w/in the past 3 mons?: No - Past History Past History: No Previous - Infectious Disease Hx of Infectious Diseases: None - Tetanus Immunization Tetanus Immunization: Unknown - Past Medical History Past Medical History: No Previous - Cardiac Hx Cardiac Disorders: No - Pulmonary Hx Respiratory Disorders: Yes Hx Bronchitis: Yes - Neurological Hx Neurological Disorder: No - HEENT Hx HEENT Disorder: No - Renal Hx Renal Disorder: No - Endocrine/Metabolic Hx Endocrine Disorders: No - Hematological/Oncological Hx Blood Disorders: No - Integumentary Hx Dermatological Disorder: No - Musculoskeletal/Rheumatological Hx Musculoskeletal Disorders: No - Gastrointestinal Hx Gastrointestinal Disorders: Yes Hx Gastritis: Yes Hx Gastroesophageal Reflux: Yes - Genitourinary/Gynecological Hx Genitourinary Disorders: No - Psychiatric Hx Psychophysiologic Disorder: No Hx Substance Use: Yes - Past Surgical History Past Surgical History: No Previous - Anesthesia Hx Anesthesia: No Hx Anesthesia Reactions: No Hx Malignant Hyperthermia: No - Suicidal Assessment Feels Threatened In Home Enviroment: No Family/Social History - Physician Review Nursing Documentation Reviewed: Yes Family/Social History: Unknown Family HX Smoking Status: Light Smoker < 10 Cigarettes Daily Hx Alcohol Use: Yes Hx Substance Use: Yes Substance used: "weed" Hx Substance Use Treatment: No Allergies/Home Meds Allergies/Adverse Reactions: Allergies shellfish derived Allergy (Verified 05/07/17 14:09) RASH Review of Systems - Review of Systems Constitutional: absent: Fatigue, Fevers Respiratory: absent: SOB, Cough Cardiovascular: absent: Chest Pain, Palpitations Gastrointestinal: absent: Abdominal Pain, Constipation, Diarrhea, Nausea, Vomiting Genitourinary Female: absent: Dysuria, Frequency, Hematuria Musculoskeletal: absent: Arthralgias, Back Pain, Neck Pain Skin: absent: Rash, Pruritis Neurological: absent: Headache, Dizziness Psychiatric: absent: Anxiety, Depression Physical Exam Vital Signs Reviewed: Yes Vital Signs Temp Pulse Resp BP Pulse Ox 05/07/17 15:18 86 18 112/71 98 05/07/17 14:10 97.7 F 90 16 114/77 98 Temperature: Afebrile Blood Pressure: Normal Pulse: Regular Respiratory Rate: Normal Appearance: Positive for: Well-Appearing, Non-Toxic, Comfortable Pain Distress: None Mental Status: Positive for: Alert and Oriented X 3 - Systems Exam Head: Present: Atraumatic Mouth: Present: Moist Mucous Membranes Neck: Present: Normal Range of Motion Respiratory/Chest: Present: Clear to Auscultation, Good Air Exchange. No: Respiratory Distress, Accessory Muscle Use Cardiovascular: Present: Regular Rate and Rhythm, Normal S1, S2. No: Murmurs Abdomen: Present: Normal Bowel Sounds. No: Tenderness, Distention, Peritoneal Signs, Rebound, Guarding Back: Present: Normal Inspection. No: CVA Tenderness, Midline Tenderness Upper Extremity: Present: Normal ROM Lower Extremity: Present: Normal ROM Neurological: Present: GCS=15, Speech Normal Skin: Present: Warm, Dry, Normal Color. No: Rashes Psychiatric: Present: Alert, Oriented x 3 Medical Decision Making ED Course and Treatment: 05/07/17 15:24 32-year-old female presents today with concerns for . Patient is requesting test. Urine hCG is negative for . I advised the patient a test is negative. Patient is advised to follow -up with her rehabilitation services aide within the next 2 days. Patient was advised me to return if symptoms worsen persist or if new concerning symptoms develop. Patient verbalizes understanding of discharge instructions and need for immediate followup. all aspects of this case were discussed the attending of record. Impression: encounter for test, negative follow up with the beer cooler within the next 2 days return if symptoms worsen, persist or if new symptoms develop; high fevers, increasing pain, vomiting/diarrhea or if any other concerning symptoms develop. Disposition/Present on Arrival - Present on Arrival Any Indicators Present on Arrival: No History of DVT/PE: No History of Uncontrolled Diabetes: No Urinary Catheter: No History of Decub. Ulcer: No History Surgical Site Infection Following: None - Disposition Have Diagnosis and Disposition been Completed?: Yes Diagnosis: Urine test negative Disposition: HOME/ ROUTINE Disposition Time: 15:28 Patient Plan: Discharge Condition: GOOD Additional Instructions: follow up with the beer cooler within the next 2 days return if symptoms worsen, persist or if new symptoms develop; high fevers, increasing pain, vomiting/diarrhea or if any other concerning symptoms develop. Referrals: Marilu Regan APN [Primary Care Provider] - Follow up with primary Ravi Gold MD [Staff Provider] - [facility] - Follow up with primary Forms: [employer] (Ethiopian), WORK NOTE
== END 2017-05-07 15:31 | disposition home or self-care (01) ==
LOC: ED 14:04
DX: Z32.02 Encounter for pregnancy test, result negative (principal); F17.210 Nicotine dependence, cigarettes, uncomplicated

== ENCOUNTER 2017-11-13 11:02 | Emergency (ER) | payer SELFPAY ==
[2017-11-13 11:03] VITALS: BMI 19.6
[2017-11-13] MEDS ORDERED: Sodium Chloride 0.9% 1,000 ML IV STA (12:03)
[2017-11-13 12:08] LABS: URINE COLOR YELLOW (YELLOW)
[2017-11-13 12:09] LABS: URINE APPEARANCE CLEAR (CLEAR); URINE BILIRUBIN NEGATIVE (NEGATIVE); URINE BLOOD NEGATIVE (NEGATIVE); URINE GLUCOSE (UA) NEGATIVE (NEGATIVE); URINE LEUKOCYTE ESTERASE NEGATIVE Leu/uL (NEGATIVE); URINE PROTEIN 30 mg/dL (<30 mg/dL)
[2017-11-13 12:21] LABS: HEMOGLOBIN 13.3 g/dL (12.0-16.0); MEAN CELL VOLUME 97.2 fl (80.0-105.0); MEAN CORPUSCULAR HEMOGLOBIN 33.6 pg (25.0-35.0); MEAN CORPUSCULAR HGB CONC 34.5 g/dl (31.0-37.0); RBC 3.96 10^6/uL (3.5-6.1)
[2017-11-13 12:22] LABS: BASO # 0.03 K/mm3 (0.0-2.0); BASO % 0.2 % (0.0-3.0); EOS % 0.2 % (1.5-5.0); GRAN # 9.82 (1.4-6.5); GRAN % 81.9 % (50.0-68.0); LYMPH # 1.4 (1.2-3.4); LYMPH % 11.2 % (22.0-35.0); MONO # 0.8 (0.1-0.6); MONO % 6.5 % (1.0-6.0); RED CELL DISTRIBUTION WIDTH 12.8 % (11.5-14.5)
[2017-11-13 12:32] LABS: ALB/GLOB RATIO 1.4 (1.1-1.8); ALBUMIN 4.8 g/dL (3.0-4.8); ALT/SGPT 67 U/L (7-56); AST/SGOT 186 U/L (14-36); BLOOD UREA NITROGEN 15 mg/dL (7-21); CALCIUM 9.7 mg/dL (8.4-10.5); GFR NON-AFRICAN AMERICAN > 60; LIPASE 113 U/L (23-300)
[2017-11-13 12:34] LABS: URINE RBC 0 - 2 /hpf (0-2); URINE WBC 0 - 2 /hpf (0-6)
[2017-11-13] MEDS ORDERED: Iohexol 350 MG/100 ML VIAL ONE (12:58)
--- NOTE | 2017-11-13 14:02 | CT ---
Date of service: 11/13/2017 PROCEDURE: CT Abdomen and Pelvis with contrast HISTORY: abd pain COMPARISON: None. TECHNIQUE: Contrast dose: 100 cc of Omni 350 Radiation dose: Total exam DLP = 196 mGy-cm. This CT exam was performed using one or more of the following dose reduction techniques: Automated exposure control, adjustment of the mA and/or kV according to patient size, and/or use of iterative reconstruction technique. FINDINGS: LOWER THORAX: Unremarkable. LIVER: Unremarkable. No gross lesion or ductal dilatation. GALLBLADDER AND BILE DUCTS: Unremarkable. PANCREAS: Unremarkable. No gross lesion or ductal dilatation. SPLEEN: Unremarkable. ADRENALS: Unremarkable. No mass. KIDNEYS AND URETERS: Unremarkable. No hydronephrosis. No solid mass. VASCULATURE: Unremarkable. No aortic aneurysm. BOWEL: Unremarkable. No obstruction. No gross mural thickening. APPENDIX: The appendix is not visualized but there are no secondary signs of appendicitis. The study is limited by very little intra-abdominal fat and no oral contrast. PERITONEUM: Unremarkable. No free fluid. No free air. LYMPH NODES: Unremarkable. No enlarged lymph nodes. BLADDER: Unremarkable. REPRODUCTIVE: Unremarkable. BONES: No acute fracture. OTHER FINDINGS: None. IMPRESSION: No acute intra-abdominal findings. The study is limited by lack of intra-abdominal fat the bowel loops. There is no oral contrast.
[2017-11-13] MEDS ORDERED: Morphine 2 mg/ml ISec IVP STA (15:54)
--- NOTE | 2017-11-13 16:03 | US ---
Date of service: 11/13/2017 HISTORY: lower abdominal pain COMPARISON: None available. TECHNIQUE: Transvaginal ultrasound FINDINGS: UTERUS: Measures 6.4 x 3.6 x 4.2 cm. Normal in size and appearance. No fibroid or other mass lesion seen. ENDOMETRIUM: Measures 3 mm in diameter. Unremarkable. CERVIX: No cervical abnormality identified. 3.1 cm length RIGHT OVARY: Measures 1.64 x 1.28 x 2.16 cm. No solid mass. Normal flow. Small follicular cysts LEFT OVARY: Measures 3.74 x 1.46 x 1.36 cm. No solid mass. Normal flow. Small follicular cysts FREE FLUID: Small amount of free fluid in the cul-de-sac OTHER FINDINGS: None. IMPRESSION: Unremarkable pelvic ultrasound.
--- NOTE | 2017-11-13 16:25 | ED PDOC ---
Arrival/HPI - General Historian: Patient - History of Present Illness Narrative History of Present Illness (Text): 11/13/17 17:43 32-year-old female presents today with a 2 day history of worsening lower abdominal pain. Patient states the abdominal pain is greatest across the entire lower abdomen. She denies vomiting or diarrhea. She is complaining of nausea. She denies vaginal bleeding or vaginal discharge. She denies chest pain or shortness of breath Patient denies fevers or chills. No sick contacts. Patient describes the pain as a full sharp and crampy pain. Complaining of decreased appetite. States no bowel movement in 2 days. Patient denies . no medications have been taken at home. No other complaints Time/Duration: Other (2 days) <Ligia Boston - Last Filed: 11/13/17 18:43> <Ever Colmenares - Last Filed: 11/15/17 16:44> - General Chief Complaint: Abdominal Pain Time Seen by Provider: 11/13/17 11:37 Past Medical History - Provider Review Nursing Documentation Reviewed: Yes - Travel History Have you recently traveled outside [place] w/in the past 3 mons?: No - Past History Past History: No Previous - Infectious Disease Hx of Infectious Diseases: None - Tetanus Immunization Tetanus Immunization: Unknown - Reproductive Menopause: No - Past Medical History Past Medical History: No Previous - Cardiac Hx Cardiac Disorders: No - Pulmonary Hx Respiratory Disorders: Yes Hx Bronchitis: Yes - Neurological Hx Neurological Disorder: No - HEENT Hx HEENT Disorder: No - Renal Hx Renal Disorder: No - Endocrine/Metabolic Hx Endocrine Disorders: No - Hematological/Oncological Hx Blood Disorders: No - Integumentary Hx Dermatological Disorder: No - Musculoskeletal/Rheumatological Hx Musculoskeletal Disorders: No - Gastrointestinal Hx Gastrointestinal Disorders: Yes Hx Gastritis: Yes Hx Gastroesophageal Reflux: Yes - Genitourinary/Gynecological Hx Genitourinary Disorders: No - Psychiatric Hx Psychophysiologic Disorder: No Hx Substance Use: Yes - Past Surgical History Past Surgical History: No Previous - Anesthesia Hx Anesthesia: No Hx Anesthesia Reactions: No Hx Malignant Hyperthermia: No - Suicidal Assessment Feels Threatened In Home Enviroment: No <Ligia Boston - Last Filed: 11/13/17 18:43> Family/Social History - Physician Review Nursing Documentation Reviewed: Yes Family/Social History: Unknown Family HX Smoking Status: Light Smoker < 10 Cigarettes Daily Hx Alcohol Use: Yes Hx Substance Use: Yes Substance used: "weed" Hx Substance Use Treatment: No <Ligia Boston - Last Filed: 11/13/17 18:43> Allergies/Home Meds <Ligia Boston - Last Filed: 11/13/17 18:43> <Ever Colmenares - Last Filed: 11/15/17 16:44> Allergies/Adverse Reactions: Allergies shellfish derived Allergy (Verified 05/07/17 14:09) RASH Home Medications: Home Meds Medication Instructions Recorded Confirmed RX: Omeprazole 40 mg PO DAILY 11/13/17 11/13/17 Review of Systems - Review of Systems Constitutional: absent: Fatigue, Fevers Respiratory: absent: SOB, Cough Cardiovascular: absent: Chest Pain, Palpitations Gastrointestinal: Abdominal Pain, Constipation, Nausea. absent: Diarrhea, Vomiting Genitourinary Female: absent: Dysuria, Frequency, Hematuria, Vaginal Bleeding, Vaginal Discharge Musculoskeletal: absent: Arthralgias, Back Pain, Neck Pain Skin: absent: Rash, Pruritis Neurological: absent: Headache, Dizziness Psychiatric: absent: Anxiety, Depression <Ligia Boston - Last Filed: 11/13/17 18:43> Physical Exam Vital Signs Reviewed: Yes Vital Signs Temp Pulse Resp BP Pulse Ox 11/13/17 11:05 99 F 88 18 117/72 99 Temperature: Afebrile Blood Pressure: Normal Pulse: Regular Respiratory Rate: Normal Appearance: Positive for: Well-Appearing, Non-Toxic, Comfortable Pain Distress: None Mental Status: Positive for: Alert and Oriented X 3 - Systems Exam Head: Present: Atraumatic Mouth: Present: Moist Mucous Membranes Neck: Present: Normal Range of Motion Respiratory/Chest: Present: Clear to Auscultation, Good Air Exchange. No: Respiratory Distress, Accessory Muscle Use Cardiovascular: Present: Regular Rate and Rhythm, Normal S1, S2. No: Murmurs Abdomen: Present: Tenderness (+ rlq/LLQ, suprapubic tenderness), Guarding (voluntary). No: Distention, Peritoneal Signs, Rebound, Hernias Genitourinary/Pelvic Exam: Present: Normal External Genitalia, Cervical os Closed, Other (wei er EMT). No: Vaginal Discharge, Vaginal Bleeding, Vaginal Lesions, Adenexal Tenderness, Adenexal Mass, Cervical Motion Tendernes, Odor Back: Present: Normal Inspection. No: Midline Tenderness, Paraspinal Tenderness Upper Extremity: Present: Normal ROM Lower Extremity: Present: Normal ROM Neurological: Present: GCS=15, Speech Normal Skin: Present: Warm, Dry, Normal Color. No: Rashes Psychiatric: Present: Alert, Oriented x 3 <DeliasusanLigia - Last Filed: 11/13/17 18:43> Vital Signs Temp Pulse Resp BP Pulse Ox 11/13/17 18:30 98.5 F 53 L 16 113/70 100 11/13/17 18:21 53 L 16 113/70 100 11/13/17 16:51 98.5 F 62 17 116/77 97 11/13/17 11:05 99 F 88 18 117/72 99 <Ever Colmenares - Last Filed: 11/15/17 16:44> Medical Decision Making ED Course and Treatment: 11/13/17 16:22 Patient is nontoxic well appearing with stable vital signs presenting with severe abdominal pain CBC wbc; 12 CMP AST;189 Lipase wnl Urinalysis trace ketones. no leukocytes Ultrasound: FINDINGS: UTERUS: Measures 6.4 x 3.6 x 4.2 cm. Normal in size and appearance. No fibroid or other mass lesion seen. ENDOMETRIUM: Measures 3 mm in diameter. Unremarkable. CERVIX: No cervical abnormality identified. 3.1 cm length RIGHT OVARY: Measures 1.64 x 1.28 x 2.16 cm. No solid mass. Normal flow. Small follicular c ysts LEFT OVARY: Measures 3.74 x 1.46 x 1.36 cm. No solid mass. Normal flow. Small follicular cysts FREE FLUID: Small amount of free fluid in the cul-de-sac OTHER FINDINGS: None. IMPRESSION: Unremarkable pelvic ultrasound. CAT scan: FINDINGS: LOWER THORAX: Unremarkable. LIVER: Unremarkable. No gross lesion or ductal dilatation. GALLBLADDER AND BILE DUCTS: Unremarkable. PANCREAS: Unremarkable. No gross lesion or ductal dilatation. SPLEEN: Unremarkable. ADRENALS: Unremarkable. No mass. KIDNEYS AND URETERS: Unremarkable. No hydronephrosis. No solid mass. VASCULATURE: Unremarkable. No aortic aneurysm. BOWEL: Unremarkable. No obstruction. No gross mural thickening. APPENDIX: The appendix is not visualized but there are no secondary signs of appendicitis. The study is limited by very little intra-abdominal fat and no oral contrast. PERITONEUM: Unremarkable. No free fluid. No free air. LYMPH NODES: Unremarkable. No enlarged lymph nodes. BLADDER: Unremarkable. REPRODUCTIVE: Unremarkable. BONES: No acute fracture. OTHER FINDINGS: None. IMPRESSION: No acute intra-abdominal findings. The study is limited by lack of intra-abdominal fat the bowel loops. There is no oral contrast. Patient reassessment: pt with continued pain; morphine added. Discussed all results with patient in depth. Pt is still having pain. She was offered admission to the hospital but does not want to stay in the hospital. She states she will go home and try and rest and if the symptoms worsen she will return. Patient was advised of the inability to locate the appendix on CAT scan. Patient was advised that due to the lower abdominal pain the concern for appendicitis exists. I discussed in depth with the patient signs and symptoms of appendicitis and need for immediate return if the symptoms worsen or do not improve. Patient was advised she should still follow-up with the fire protection fabricator the GI specialist and her primary care physician. Patient has been advised to not leave the emergency room but has decided to go AGAINST MEDICAL ADVICE. The patient possesses capacity to make decisions and has voiced understanding to all my warnings of potential worsening of the condition for which medical care was sought. I have discussed all known and potential risks and consequences to the patient leaving AGAINST MEDICAL ADVICE. Patient is leaving against medical advise. AMA form signed. witness by CHEY Bhat. Patient was advised that she return at any point in time if she wishes to continue her care. Impression: Abdominal pain Return if you wish to continue your care Increase fluids Follow-up with the GI specialist within the next 2 days Follow-up with primary care physician within the next 2 days Return immediately if symptoms worsen or persist or if new concerning symptoms develop 11/13/17 17:48 Reassessment Condition: Re-examined, Unchanged - Lab Interpretations Lab Results: 11/13/17 12:00 11/13/17 12:00 Lab Results 11/13/17 12:00: WBC 12.0 H D, RBC 3.96, Hgb 13.3, Hct 38.5, MCV 97.2, MCH 33.6, MCHC 34.5, RDW 12.8, Plt Count 280, MPV 10.0, Gran % 81.9 H, Lymph % (Auto) 11.2 L, [place] % (Auto) 6.5 H, Eos % (Auto) 0.2 L, Baso % (Auto) 0.2, Gran # 9.82 H, Lymph # (Auto) 1.4, [place] # (Auto) 0.8 H, Eos # (Auto) 0.0, Baso # (Auto) 0.03 11/13/17 12:00: Sodium 139, Potassium 3.9, Chloride 104, Carbon Dioxide 22, Anion Gap 17, BUN 15, Creatinine 0.7, Est GFR ( Amer) > 60, Est GFR (Non- Af Amer) > 60, Random Glucose 78, Calcium 9.7, Total Bilirubin 0.5, AST 186 H, ALT 67 H, Alkaline Phosphatase 92, Total Protein 8.2, Albumin 4.8, Globulin 3.4, Albumin/Globulin Ratio 1.4, Lipase 113 11/13/17 11:56: Urine Color Yellow, Urine Appearance Clear, Urine pH 6.0, Ur Specific [place] 1.025, Urine Protein 30 H, Urine Glucose (UA) Negative, Urine Ketones 15 H, Urine Blood Negative, Urine Nitrate Negative, Urine Bilirubin Negative, Urine Urobilinogen 1.0 H, Ur Leukocyte Esterase Negative, Urine RBC 0 - 2, Urine WBC 0 - 2, Ur Epithelial Cells 1 - 3 - RAD Interpretation Radiology Orders: 11/13/17 12:02 TRANSVAGINAL [US] Stat 11/13/17 12:04 ABD & PELVIS IV CONTRAST ONLY [CT] Stat - Medication Orders Current Medication Orders: Discontinued Medications Sodium Chloride (Sodium Chloride 0.9%) 1,000 mls @ 999 mls/hr IV .Q1H1M STA Stop: 11/13/17 13:03 Last Admin: 11/13/17 12:17 Dose: 999 mls/hr eMAR Start Stop Document 11/13/17 12:17 BENEDICTO (Rec: 11/13/17 12:18 BENEDICTO [id number]) Intravenous Solution Start Date 11/13/17 Start Time 12:18 End Date 11/13/17 End time 13:18 Total Infusion Time 60 Ketorolac Tromethamine (Toradol) 30 mg IVP STAT STA Stop: 11/13/17 12:04 Last Admin: 11/13/17 12:17 Dose: 30 mg MAR Pain Assessment Document 11/13/17 12:17 BENEDICTO (Rec: 11/13/17 12:17 BENEDICTO [id number]) Pain Reassessment Is this a pain reassessment? Yes Pain Scale Used Protocol: PSCALES Pain Scale Used Numeric Location Upper or Lower Lower Pain Location Body Site Abdomen Description Intensity of Pain at present 5 IVP Administration Document 11/13/17 12:17 BENEDICTO (Rec: 11/13/17 12:17 BENEDICTO [id number]) Charges for Administration # of IVP Administrations 1 Morphine Sulfate (Morphine) 2 mg IVP STAT STA Stop: 11/13/17 15:55 <Ligia Boston T - Last Filed: 11/13/17 18:43> - Lab Interpretations Microbiology Results: Microbiology Results 11/13/17 11:56 Urine Urine Culture - Final No Growth (<1,000 CFU/ML) Lab Results: 11/13/17 12:00 11/13/17 12:00 Lab Results 11/13/17 12:00: WBC 12.0 H D, RBC 3.96, Hgb 13.3, Hct 38.5, MCV 97.2, MCH 33.6, MCHC 34.5, RDW 12.8, Plt Count 280, MPV 10.0, Gran % 81.9 H, Lymph % (Auto) 11.2 L, [place] % (Auto) 6.5 H, Eos % (Auto) 0.2 L, Baso % (Auto) 0.2, Gran # 9.82 H, Lymph # (Auto) 1.4, [place] # (Auto) 0.8 H, Eos # (Auto) 0.0, Baso # (Auto) 0.03 11/13/17 12:00: Sodium 139, Potassium 3.9, Chloride 104, Carbon Dioxide 22, A nion Gap 17, BUN 15, Creatinine 0.7, Est GFR ( Amer) > 60, Est GFR (Non- Af Amer) > 60, Random Glucose 78, Calcium 9.7, Total Bilirubin 0.5, AST 186 H, ALT 67 H, Alkaline Phosphatase 92, Total Protein 8.2, Albumin 4.8, Globulin 3.4, Albumin/Globulin Ratio 1.4, Lipase 113 11/13/17 11:56: Urine Color Yellow, Urine Appearance Clear, Urine pH 6.0, Ur Specific [place] 1.025, Urine Protein 30 H, Urine Glucose (UA) Negative, Urine Ketones 15 H, Urine Blood Negative, Urine Nitrate Negative, Urine Bilirubin Negative, Urine Urobilinogen 1.0 H, Ur Leukocyte Esterase Negative, Urine RBC 0 - 2, Urine WBC 0 - 2, Ur Epithelial Cells 1 - 3 - RAD Interpretation Radiology Orders: 11/13/17 12:02 TRANSVAGINAL [US] Stat 11/13/17 12:04 ABD & PELVIS IV CONTRAST ONLY [CT] Stat - Medication Orders Current Medication Orders: Discontinued Medications Docusate Sodium (Colace) 100 mg PO STAT STA Stop: 11/13/17 17:31 Last Admin: 11/13/17 18:38 Dose: 100 mg Last Bowel Movement Document 11/13/17 18:38 OCS (Rec: 11/13/17 18:38 OCS [id number]) Last Bowel Movement Last Bowel Movement 11/11/17 Sodium Chloride (Sodium Chloride 0.9%) 1,000 mls @ 999 mls/hr IV .Q1H1M STA Stop: 11/13/17 13:03 Last Admin: 11/13/17 12:17 Dose: 999 mls/hr eMAR Start Stop Document 11/13/17 12:17 BENEDICTO (Rec: 11/13/17 12:18 BENEDICTO [id number]) Intravenous Solution Start Date 11/13/17 Start Time 12:18 End Date 11/13/17 End time 13:18 Total Infusion Time 60 Ketorolac Tromethamine (Toradol) 30 mg IVP STAT STA Stop: 11/13/17 12:04 Last Admin: 11/13/17 12:17 Dose: 30 mg MAR Pain Assessment Document 11/13/17 12:17 BENEDICTO (Rec: 11/13/17 12:17 BENEDICTO [id number]) Pain Reassessment Is this a pain reassessment? Yes Pain Scale Used Protocol: PSCALES Pain Scale Used Numeric Location Upper or Lower Lower Pain Location Body Site Abdomen Description Intensity of Pain at present 5 IVP Administration Document 11/13/17 12:17 BENEDICTO (Rec: 11/13/17 12:17 BENEDICTO [id number]) Charges for Administration # of IVP Administrations 1 Morphine Sulfate (Morphine) 2 mg IVP STAT STA Stop: 11/13/17 15:55 Last Admin: 11/13/17 16:50 Dose: 2 mg MAR Pain Assessment Document 11/13/17 16:50 OCS (Rec: 11/13/17 16:50 OCS [id number]) Pain Reassessment Is this a pain reassessment? Yes Sleep Is patient sleeping during reassessment? No Presence of Pain Presence of Pain Yes Pain Scale Used Protocol: PSCALES Pain Scale Used Numeric Location Left, Right or Bilateral Bilateral Upper or Lower Lower Pain Location Body Site Abdomen Description Description Constant Intensity of Pain at present 10 Aggravating Factors ADL's IVP Administration Document 11/13/17 16:50 OCS (Rec: 11/13/17 16:50 OCS [id number]) Charges for Administration # of IVP Administrations 1 <Ever Colmenares - Last Filed: 11/15/17 16:44> - PA / CLIENT DELIVERY MANAGER / Resident Statement / has reviewed & agrees with the documentation as recorded. <Ever Colmenares - Last Filed: 11/15/17 16:44> Disposition/Present on Arrival - Present on Arrival Any Indicators Present on Arrival: No History of DVT/PE: No History of Uncontrolled Diabetes: No Urinary Catheter: No History of Decub. Ulcer: No History Surgical Site Infection Following: None - Disposition Have Diagnosis and Disposition been Completed?: Yes Disposition Time: 15:00 Patient Plan: Other (AMA) <Ligia Boston - Last Filed: 11/13/17 18:43> <Ever Colmenares - Last Filed: 11/15/17 16:44> - Disposition Diagnosis: Abdominal pain Disposition: AGAINST MEDICAL ADVICE Condition: UNKNOWN Discharge Instructions (ExitCare): Acute Abdomen (Belly Pain), Adult (DC) Additional Instructions: Return if you wish to continue your care Increase fluids Follow-up with the GI specialist within the next 2 days Follow-up with primary care physician within the next 2 days Return immediately if symptoms worsen or persist or if new concerning symptoms develop Prescriptions: Docusate [Colace] 100 mg PO BID #30 cap Referrals: Harley Watts DO [Staff Provider] - Follow up with primary Mayra Keane MD [Medical Doctor] - Follow up with primary Cesar Stevens DO [Staff Provider] - Follow up with primary [facility] [Outside] - Follow up with primary Forms: [employer] ([place]), WORK NOTE
[2017-11-13 17:07] VITALS: TEMP 98.5
[2017-11-13 18:22] VITALS: BP 113/70; PULSE 53; RESP 16; O2SAT 100
== END 2017-11-13 18:21 | disposition left against medical advice (07) ==
LOC: ED 11:02
DX: R10.30 Lower abdominal pain, unspecified (principal); F17.210 Nicotine dependence, cigarettes, uncomplicated
CPT/HCPCS: 74177; 76830; 80053; 81001; 83690; 85025; 87086; 96361; 96374; 96375; 99284; J1885; J2270; J7030; Q9967

== ENCOUNTER 2018-06-14 18:04 | Emergency (ER) | payer MEDICAID, OTHER ==
[2018-06-14 18:05] VITALS: BMI 19.6
== END 2018-06-14 19:34 | disposition left against medical advice (07) ==
LOC: ED 18:04
DX: Z02.89 Encounter for other administrative examinations (principal); M79.673 Pain in unspecified foot